=== PATIENT | female | born 1970 | race Caucasian/White ===

== ENCOUNTER 2021-08-27 09:12 | Emergency (ER) | payer BC ==
[~2021-08-27] VITALS: Ht 167.6 cm; Wt 80.5 kg
[2021-08-27 09:24] VITALS: TEMP 97.8
[2021-08-27 09:41] LABS: BASO % 0.8 % (0.0-2.0); EOS # 0.2 K/mm3 (0.0-0.7); EOS % 6.1 % (0-4.0); GRAN % 53.4 % (42.2-75.2); HEMATOCRIT 38.6 % (37.0-47.0); HEMOGLOBIN 13.2 g/dl (12.5-16.0); LYMPH # 1.2 K/mm3 (1.2-3.4); LYMPH % 31.8 % (20.0-51.0); MEAN CELL VOLUME 95 fl (80.0-100.0); MEAN CORPUSCULAR HEMOGLOBIN 32 pg (27.0-31.0); MEAN CORPUSCULAR HGB CONC 34 g/dl (33.0-37.0); MEAN PLATELET VOLUME 9.1 fl (7.4-10.4); MONO # 0.3 K/mm3 (0.1-0.6); MONO % 7.4 % (1.7-9.3); PLATELET COUNT 279 K/mm3 (130-400); RED BLOOD COUNT 4.08 M/mm3 (4.10-5.30); REDCELL DISTRIBUTION WIDTH-CV 12.1 % (11.5-14.5)
[2021-08-27 09:57] LABS: ALBUMIN 4.1 gm/dL (3.5-5.0); BILIRUBIN,TOTAL 0.5 mg/dL (0.2-1.2); CALCIUM 9.5 mg/dL (8.4-10.2); CREATININE, serum 0.93 mg/dL (0.57-1.11); POTASSIUM 3.9 mmol/L (3.5-4.5); TOTAL PROTEIN 7.1 gm/dL (6.2-8.1)
[2021-08-27 10:03] LABS: TROPONIN-I 0.011 ng/mL (0.00-0.033)
[2021-08-27 13:42] VITALS: BP 117/62; PULSE 83
== END 2021-08-27 13:42 | disposition home or self-care (01) ==
LOC: COL.ER 09:12
PROVIDERS: Emergency Medicine
DX: R07.89 Other chest pain (principal); F17.210 Nicotine dependence, cigarettes, uncomplicated; Z20.822 Contact with and (suspected) exposure to COVID-19

== ENCOUNTER 2021-12-08 14:27 | Inpatient (IN) | payer BC ==
[~2021-12-08] VITALS: Ht 167.6 cm; Wt 82.7 kg
[2021-12-08 15:54] LABS: BASO % 0.1 % (0.0-2.0); EOS % 0.1 % (0.0-4.0); GRAN # 4.9 K/mm3 (1.4-6.5); GRAN % 64.1 % (42.2-75.2); HEMOGLOBIN 11.5 g/dl (12.5-16.0); LYMPH # 1.8 K/mm3 (1.2-3.4); LYMPH % 23.4 % (20.0-51.0); MEAN CELL VOLUME 92 fl (80.0-100.0); MEAN CORPUSCULAR HEMOGLOBIN 33 pg (27-31); MEAN CORPUSCULAR HGB CONC 36 g/dl (33.0-37.0); MEAN PLATELET VOLUME 10.1 fl (7.4-10.4); MONO # 0.9 K/mm3 (0.1-0.6); PLATELET COUNT 242 K/mm3 (130-400); RED BLOOD COUNT 3.46 M/mm3 (4.10-5.30); REDCELL DISTRIBUTION WIDTH-CV 11.8 % (11.5-14.5)
[2021-12-08 15:56] LABS: BILIRUBIN,TOTAL 0.5 mg/dL (0.2-1.2); C-REACTIVE PROTEIN 0.17 mg/dL (0.00-0.50); CREATININE, serum 0.83 mg/dL (0.57-1.11); HEMATOCRIT 31.7 % (37.0-47.0); POTASSIUM 3.3 mmol/L (3.5-4.5); TOTAL PROTEIN 6.8 gm/dL (6.2-8.1)
[2021-12-08 18:04] LABS: COLLECTION METHOD CLEAN CATCH
[2021-12-08 18:19] LABS: MUCOUS Present (NOT PRESENT); PH 6 (5-8); SQUAMOUS EPITHELIAL 0-2 /hpf (0-10); URINE APPEARANCE Clear (CLEAR/HAZY); URINE BACTERIA None Seen /hpf (NONE SEEN); URINE BILIRUBIN Negative (NEGATIVE); URINE BLOOD 3+ (NEGATIVE); URINE COLOR Yellow (YELLOW); URINE GLUCOSE Negative (NEGATIVE); URINE KETONE 1+ (NEGATIVE); URINE LEUKOCYTE ESTERASE Negative (NEGATIVE); URINE NITRATE Negative (NEGATIVE); URINE PROTEIN(semi-quant) Negative (NEGATIVE); URINE UROBILINOGEN Negative (NEGATIVE)
[2021-12-08 18:25] LABS: TRICYCLIC ANTIDEPRESS URINE NEGATIVE
[2021-12-08] MEDS ORDERED: NEURONTIN300 MG/CAP PO (20:19)
[2021-12-08] MEDS ORDERED: ATIVAN 1MG T1 MG/TAB PO (20:20)
[2021-12-08] MEDS ORDERED: AMITRIPTYLINE H25 M1 PO (20:21)
[2021-12-08] MEDS ORDERED: CELEXA40 MG PO (20:22)
--- NOTE | 2021-12-08 20:41 | NUR ---
Pt. arrived to the floor. Pt. able to ambulate to the bed independently. It is Alert to self and daughter. Pt. able to answer who the president is but not the month or year. Pt. denies pain. Call light within reach.
--- NOTE | 2021-12-08 21:00 | NUR ---
Due to pt. having altered mental status, pt. is not currently a good historian and unable to complete med rec. Will have day shift nurse notify the pt.'s pharmacy.
[2021-12-08 21:12] VITALS: BP 124/62; PULSE 61; TEMP 98.4
[2021-12-08 22:55] LABS: MAGNESIUM 1.8 mg/dL (1.6-2.6)
--- NOTE | 2021-12-08 22:59 | NUR ---
Vancomycin Initial Dosing Pharmacy Note Ordering provider: Last Gonzalez MD Indication/duration: Possible meningitis x 5 days. Relevant comorbidities: N/A LABS: WBC = 7.7, SCr = 0.83 Recommendation: Will draw troughs and follow levels. Loading dose: 2 grams Maintenance dose: 1.5 grams every 12 hours Trough goal: 20-25 ug/mL
--- NOTE | 2021-12-09 02:45 | NUR ---
Pt. found up in room with bed alarm going off. When pt. asked where they were going. Pt got very angry. Pt. is not able to voice what they are angry about and sentences are incomplete and incoherent at this time. Pt. gets verbally aggressive with this nurse yelling put downs. Pt. requesting to see the SANFORD Rangel was notified and came to the room. Pt. then began to settle down a bit. One time dose of ativan given IV. This nurse, SANFORD Denise, and REE Perez remained at the pt.'s bedside for several minutes allowing the pt. just to talk. Pt. talkes about losing her last January. When asked if pt. feels like harming herself the pt. voices no. Pt. helped to bed and repositioned for comfort. Pt. denies further needs, bed alarm on.
[2021-12-09 03:06] VITALS: BP 123/70; PULSE 55; TEMP 97.8
[2021-12-09 07:22] VITALS: BP 149/81; PULSE 56; TEMP 98.4
--- NOTE | 2021-12-09 08:38 | NUR ---
Pt assessment complete. Pt is sitting up in bed upon entry, she is oriented to self and time, she [place] she [place] [employer], but knows she is in [place]. Pt is able to carry on a conversation, but occasionally has scattered misplaced thoughts. She is able to recall some events from past and from the ER visit. Pt denies any pain at this time. No SOB. Denies N/V. Call light within reach, bed alarm in place.
[2021-12-09 10:05] LABS: BASO % 0.2 % (0.0-2.0); GRAN # 3.7 K/mm3 (1.4-6.5); GRAN % 70.3 % (42.2-75.2); HEMOGLOBIN 10.6 g/dl (12.5-16.0); LYMPH # 1.1 K/mm3 (1.2-3.4); LYMPH % 20.2 % (20.0-51.0); MEAN CELL VOLUME 92 fl (80.0-100.0); MEAN CORPUSCULAR HEMOGLOBIN 32 pg (27-31); MEAN CORPUSCULAR HGB CONC 35 g/dl (33.0-37.0); MONO # 0.5 K/mm3 (0.1-0.6); MONO % 8.7 % (1.7-9.3); PLATELET COUNT 233 K/mm3 (130-400); RED BLOOD COUNT 3.31 M/mm3 (4.10-5.30); REDCELL DISTRIBUTION WIDTH-CV 11.9 % (11.5-14.5)
[2021-12-09 10:15] LABS: HEMATOCRIT 30.6 % (37.0-47.0)
--- NOTE | 2021-12-09 10:24 | NUR ---
MARLIN completed intake with daughter Jayleen [phone]. Daughter stated that patient lives in [place] alone and that she is the next of kin or point of contact due to being DPOA-HC if documents are located will be brought to the facility. Daughter stated that patient does not utilize DME, and is independent with ADLs, PCP is Dr. Gonzalez, and pharmacy is [facility]. Daughter stated that the patient's current dc plan is to return to her home [place]. Daughter stated she had no current questions or concerns. SW will continue to follow. DC plan: home/lives alone
[2021-12-09 11:53] VITALS: BP 152/64; PULSE 64; TEMP 98.1
[2021-12-09 15:10] VITALS: BP 140/72; PULSE 77; TEMP 98.1
--- NOTE | 2021-12-09 18:33 | NUR ---
Pt's mentation seemed to improve today. Denied any pain. POC discussed, patient agreeable to LP tomorrow with a dose of Ativan. Daughter in agreeance. No further needs at this time. Call light within reach.
[2021-12-09 19:41] VITALS: BP 124/82; PULSE 83; TEMP 98.7
--- NOTE | 2021-12-09 20:30 | NUR ---
Pt. sitting up in bed. Pt. is A&OX3, assessment complete. INT to rt. ac patent. Pt. denies pain. Pt.'s ability to carry on a conversation much improved today. Pt. denies further needs, call light within reach.
[2021-12-10] VITALS (7 sets, daily range): BP systolic 105–174; BP diastolic 65–90; PULSE 61–77; TEMP 96.1–99.6
[2021-12-10 06:41] LABS: BASO % 0.6 % (0.0-2.0); EOS # 0.1 K/mm3 (0.0-0.7); GRAN # 2.7 K/mm3 (1.4-6.5); GRAN % 50.7 % (42.2-75.2); HEMOGLOBIN 10.3 g/dl (12.5-16.0); LYMPH % 38.5 % (20.0-51.0); MEAN CELL VOLUME 92 fl (80.0-100.0); MEAN CORPUSCULAR HEMOGLOBIN 33 pg (27-31); MEAN CORPUSCULAR HGB CONC 36 g/dl (33.0-37.0); MEAN PLATELET VOLUME 10.3 fl (7.4-10.4); MONO # 0.5 K/mm3 (0.1-0.6); MONO % 8.6 % (1.7-9.3); PLATELET COUNT 224 K/mm3 (130-400); RED BLOOD COUNT 3.16 M/mm3 (4.10-5.30); REDCELL DISTRIBUTION WIDTH-CV 11.9 % (11.5-14.5)
[2021-12-10 06:55] LABS: CALCIUM 8.3 mg/dL (8.4-10.2); CREATININE, serum 0.81 mg/dL (0.57-1.11)
[2021-12-10 07:02] LABS: POTASSIUM 2.9 mmol/L (3.5-4.5)
--- NOTE | 2021-12-10 09:30 | NUR ---
Upon seeing pt for assessment, she was adament that she was going home and that her son-in-law would be here around 1130 to get her. She was very convincing as far as stating that she knew she would need to follow up with Dr Gonzalez and that we needed to send our records to them. She went on to state that the physician had been in and went over everything she needed. Clarified with Weston Bonds and that no, she is not cleared for discharge. Pt reports not having any pain. Will follow up with daughter regarding the fact that she is not ready for discharge
--- NOTE | 2021-12-10 11:08 | NUR ---
Pt down for lumbar puncture at this time. I did talk with her daughter earlier about the plan of care for today and to clarify that she is not going to be discharged. Daughter stated that Salud did text her sister that she was okay to go home for someone to come get her. Daughter understands the importance of her staying and completing ordered tests.
[2021-12-10 12:21] LABS: GLUCOSE,CSF 34 mg/dL (40-70); TOTAL PROTEIN,CSF 61 mg/dL (15-45)
[2021-12-10 12:44] LABS: CSF APPEARANCE HAZY; CSF COLOR RED
--- NOTE | 2021-12-10 12:45 | NUR ---
Notified pharmacy that the noon dose of abx is not on the unit.
[2021-12-10 12:48] LABS: CSF MONONUCLEAR 95 % (70-100); CSF POLYMORPHONUCLEAR 5 % (0-6); CSF RBC 12000 /mm3 (0-0)
[2021-12-10 12:54] LABS: CSF MONONUCLEAR 98 % (70-100); CSF POLYMORPHONUCLEAR 2 % (0-6); CSF RBC 1000 /mm3 (0-0)
[2021-12-10 12:56] LABS: CSF APPEARANCE CLEAR; CSF COLOR COLORLESS
--- NOTE | 2021-12-10 15:24 | NUR ---
Pt is starting to get upset that she is still here. She continues to state that she is ready to go home and sleep in her own bed tonight. Again informed her that she will be staying here tonight to get necessary medications. Pt stated that she cannot stay again tonight because if she does she will be fired from her job. Pt stated that her son-in-law and her daughter were here a little bit ago and plan to get her to take her home. I have not seen any family visiting today.
--- NOTE | 2021-12-10 21:00 | NUR ---
PT UP IN ROOM WITH STEADY GAIT. CONNECTED TO IV ANTIBIOTIC, AFTER CLEANING AND REDRESSING RT AC SITE. PT HAS DISORIENTED CONVERSATION OF CURRENT SITUATION THEN HAS GOOD RECALL OF MEDICAL HISTORY. REPORTS PAIN IN BACK, HAS REMOVED BANDAID FROM LOWER BACK LP PUNCTURE SITE. REPLACING POTASSIUM OF 3.4.
--- NOTE | 2021-12-10 22:00 | NUR ---
PT HAS BEEN MESSING WITH HER IV PUMP, HAS SETTINGS OFF. RE-PROGRAMMED AND PLACED PUMP CANCINO PAD ON LOCKOUT. PT LAUGHS INAPPROPRIATELY. STATES "I'M GOING TO BE IN AND OUT TOMORROW AND HOPING TO HAVE DINNER WITH MY DAUGHTER". RE-ORIENTED PT AT THIS TIME.
--- NOTE | 2021-12-10 23:03 | NUR ---
MEDICATED WITH ES TYLENOL 1000MG PO FOR BACK PAIN.
--- NOTE | 2021-12-11 02:12 | NUR ---
NOTIFIED ADAMA CHRISTINA OF PTS POSITIVE CSF W/HERPES SIMPLEX 2. PT PULLED IV SITE OUT, UNABLE TO RESTART X3 AT THIS TIME.
[2021-12-11 03:49] VITALS: BP 142/61; PULSE 70; TEMP 98.7
[2021-12-11 07:30] VITALS: BP 145/74; PULSE 85; TEMP 99.2
[2021-12-11 08:38] LABS: BASO % 0.4 % (0.0-2.0); EOS # 0.1 K/mm3 (0.0-0.7); EOS % 1.6 % (0.0-4.0); GRAN # 3.2 K/mm3 (1.4-6.5); GRAN % 62.8 % (42.2-75.2); HEMOGLOBIN 10.5 g/dl (12.5-16.0); LYMPH # 1.3 K/mm3 (1.2-3.4); LYMPH % 26.5 % (20.0-51.0); MEAN CELL VOLUME 92 fl (80.0-100.0); MEAN CORPUSCULAR HEMOGLOBIN 33 pg (27-31); MEAN CORPUSCULAR HGB CONC 36 g/dl (33.0-37.0); MEAN PLATELET VOLUME 9.8 fl (7.4-10.4); MONO # 0.4 K/mm3 (0.1-0.6); MONO % 8.1 % (1.7-9.3); PLATELET COUNT 247 K/mm3 (130-400); RED BLOOD COUNT 3.21 M/mm3 (4.10-5.30); REDCELL DISTRIBUTION WIDTH-CV 11.8 % (11.5-14.5)
[2021-12-11 08:39] LABS: HEMATOCRIT 29.4 % (37.0-47.0)
[2021-12-11 08:53] LABS: CALCIUM 8.4 mg/dL (8.4-10.2); CREATININE, serum 0.76 mg/dL (0.57-1.11); MAGNESIUM 1.8 mg/dL (1.6-2.6); POTASSIUM 3.8 mmol/L (3.5-4.5)
--- NOTE | 2021-12-11 11:01 | NUR ---
PT A&O X 2 THIS MORNING. DID NOT KNOW SHE WAS IN [place], REORIENTS EASILY. VSS. PT DENIES NEEDS THIS MORNING. INFECTIOUS DISEASE CONSULT CALLED THIS AM.
[2021-12-11 12:00] VITALS: BP 151/72; PULSE 73; TEMP 98.6
[2021-12-11 15:18] VITALS: BP 178/78; PULSE 55; TEMP 98.2
--- NOTE | 2021-12-11 16:15 | NUR ---
PT MORE ORIENTED THIS AFTERNOON. WAS ABLE TO RECALL CONVERSATION WITH DOCTOR. TOOK SHOWER TODAY. PLAN FOR PICC LINE PLACEMENT TOMORROW. WILL NEED ACYCLOVIR FOR 14 MORE DAYS PER ID. SOCIAL WORK FOLLOWING.
[2021-12-11 20:41] VITALS: BP 155/55; PULSE 86; TEMP 98.5
--- NOTE | 2021-12-11 22:41 | NUR ---
PT IN BED, IS ALERT AND ORIENTED X3. REPORTS PAIN IN HER HIPS AND ASKS IF WE ARE GIVING HER HOME MEDS TO HER. LISTED ALL HOME MEDS IN COMPUTER. REPORTS HEADACHE WELL. MEDICATED WITH ES TYLENOL 1000MG PO FOR HEADACHE. LOVENOX GIVEN IN ABD. CONNECTED TO IV ACYCLOVIR, IV SITE TO LEFT HAND FLUSHES WELL, FLUIDS INFUSING WITHOUT PROBLEM. PT REPORTS FEELING BETTER AND MORE CLEAR IN HER "BRAIN" TONIGHT.
--- NOTE | 2021-12-11 23:11 | NUR ---
ADAMA CHRISTINA REORDERS PT'S GABAPENTIN PER PT REQUEST, GIVEN AT THIS TIME.
[2021-12-12 00:05] VITALS: BP 122/67; PULSE 69; TEMP 98.1
[2021-12-12 04:34] VITALS: BP 143/74; PULSE 79; TEMP 98.2
[2021-12-12 06:30] LABS: BASO # 0.1 K/mm3 (0.0-0.2); EOS # 0.2 K/mm3 (0.0-0.7); EOS % 3.4 % (0.0-4.0); GRAN # 2.2 K/mm3 (1.4-6.5); GRAN % 44.3 % (42.2-75.2); HEMOGLOBIN 10.3 g/dl (12.5-16.0); LYMPH # 2.2 K/mm3 (1.2-3.4); LYMPH % 43.7 % (20.0-51.0); MEAN CELL VOLUME 95 fl (80.0-100.0); MEAN CORPUSCULAR HEMOGLOBIN 33 pg (27-31); MEAN CORPUSCULAR HGB CONC 35 g/dl (33.0-37.0); MEAN PLATELET VOLUME 10.1 fl (7.4-10.4); MONO # 0.4 K/mm3 (0.1-0.6); PLATELET COUNT 244 K/mm3 (130-400); RED BLOOD COUNT 3.11 M/mm3 (4.10-5.30); REDCELL DISTRIBUTION WIDTH-CV 12.1 % (11.5-14.5)
[2021-12-12 06:50] LABS: HEMATOCRIT 29.4 % (37.0-47.0)
[2021-12-12 06:59] LABS: CALCIUM 8.4 mg/dL (8.4-10.2); CREATININE, serum 0.76 mg/dL (0.57-1.11); POTASSIUM 3.4 mmol/L (3.5-4.5)
[2021-12-12 07:49] VITALS: BP 142/80; PULSE 81; TEMP 98.6
--- NOTE | 2021-12-12 09:08 | NUR ---
PT RESTING IN BED. C/O HAYS TYLENOL GIVEN. IV ACYLOVIR GIVEN ORDERED. PT DENIES NEEDS AT THIS TIME. VSS ASSESSMENTS COMPLETE. PT IS A\OX3.
[2021-12-12] MEDS ORDERED: ZOVIRAX INJ V1000 MG IV ×2 (11:46→13:02)
[2021-12-12] MEDS ORDERED: TYLENOL 500MG500 MG PO (11:47)
[2021-12-12 12:27] VITALS: BP 138/86; PULSE 70; TEMP 97.8
--- NOTE | 2021-12-12 15:03 | NUR ---
[employer] and MARLIN student attended clinical rounds with the team and patient is ready for discharge today. Patient will need 12 days of IV antibiotics, three times a day post discharge. MARLIN and SW student met with patient who would like to do outpatient IV antibiotics at the [facility]. Patient states she plans to stay with her daughter, Paige in [place] and that Paige lives right down the road from [facility]. Patient feels it will be good for her to get out of the house. MARLIN contacted TREASURE Pope at [facility] and faxed referral/orders. Patient will have 12 days of IV antibiotics and appointments with be at 0600, 1400, and 2200. MARLIN confirmed these appointment times work with patient. MARLIN collaborated with [facility] and Hospitalist team to arrange for patient to receive third does of antibiotic prior to discharge today, meaning patient will start tomorrow at 0600. Patient is agreeable to this plan. Discharge Plan: Home with daughter, outpatient IV antibiotics at [facility]
[2021-12-12 15:38] VITALS: BP 146/70; PULSE 72; TEMP 99.2
--- NOTE | 2021-12-12 19:45 | NUR ---
Pt. sitting up in bed. Pt. is A&OX3, assessment complete. PICC to rt. upper arm patent. Pt. denies pain. Pt. reviewed home care with PICC line. Will give pt. educational paperwork on PICC lines in discharge paper work. Last dose of Acyclavir started. Pt. denies further needs, call light within reach.
[2021-12-12 20:09] VITALS: BP 133/81; PULSE 74; TEMP 98.1
--- NOTE | 2021-12-12 21:10 | NUR ---
Pt.'s acyclovir complete. Pt. reviewed discharge paperwork with pt. and daughter. Pt. voices understanding. Reviewed medications, Pt. voices understanding. Pt. given pt. health summary, education, and appointment imformation. Pt. voices understanding. Pt. discharging with PICC line. Reviewed home care education. Pt. voices understanding. Pt. denies further questions. Pt. escorted out by wheelchair with REE Kang.
== END 2021-12-12 21:20 | disposition home or self-care (01) | DRG 75 ==
LOC: COL.ER 14:27 → SURG 18:12
PROVIDERS: Family Medicine; Physician Assistant; Student in an Organized Health Care Education/Training Program; ADMIT Student in an Organized Health Care Education/Training Program
PROC: 009U3ZX Drainage of Spinal Canal, Percutaneous Approach, Diagnostic (ICD-10-PCS; principal; 2021-12-10)
PROC: 02HV33Z Insertion of Infusion Device into Superior Vena Cava, Percutaneous Approach (ICD-10-PCS; 2021-12-12)
DX: B00.3 Herpesviral meningitis (principal); G93.40 Encephalopathy, unspecified; F41.9 Anxiety disorder, unspecified; K21.9 Gastro-esophageal reflux disease without esophagitis; J10.1 Influenza due to other identified influenza virus with other respiratory manifestations; F32.A Depression, unspecified; G43.909 Migraine, unspecified, not intractable, without status migrainosus; E87.6 Hypokalemia; Z20.822 Contact with and (suspected) exposure to COVID-19; F17.210 Nicotine dependence, cigarettes, uncomplicated; Z79.891 Long term (current) use of opiate analgesic; Z23 Encounter for immunization
CPT/HCPCS: OP; 99233-AI; 99239; C1751; G0378; J0133; J0696; J1100; J1650; J2060; J3370; J7030; J7040; J7050

== ENCOUNTER → 2021-12-24 | Outpatient (CLI) | payer BC ==
[~2021-12-24] MED LIST: AMITRIPTYLINE H25 M1 PO; ATIVAN 1MG T1 MG/TAB PO; CARAFATE 1GM1 G PO; CELEXA40 MG PO; FLEXERIL 1010 MG/TAB PO; NEURONTIN300 MG/CAP PO; PRIL40 PO; TYLENOL 500MG500 MG PO; ZOVIRAX INJ V1000 MG IV; ZOVIRAX400 MG PO
[2021-12-24 14:18] LABS: HEMOGLOBIN 12.1 g/dl (12.5-16.0); MEAN CELL VOLUME 99 fl (80.0-100.0); MEAN CORPUSCULAR HEMOGLOBIN 33 pg (27-31); MEAN CORPUSCULAR HGB CONC 33 g/dl (33.0-37.0); MEAN PLATELET VOLUME 9.1 fl (7.4-10.4); PLATELET COUNT 272 K/mm3 (130-400); RED BLOOD COUNT 3.65 M/mm3 (4.10-5.30); REDCELL DISTRIBUTION WIDTH-CV 13.9 % (11.5-14.5)
[2021-12-24 14:19] LABS: HEMATOCRIT 36.2 % (37.0-47.0)
[2021-12-24 14:32] LABS: ALBUMIN 3.9 gm/dL (3.5-5.0); BILIRUBIN,TOTAL 0.4 mg/dL (0.2-1.2); CREATININE, serum 0.89 mg/dL (0.57-1.11); POTASSIUM 3.9 mmol/L (3.5-4.5); TOTAL PROTEIN 6.7 gm/dL (6.2-8.1)
== END ==
LOC: COL.LAB 13:49
PROVIDERS: Physician Assistant
DX: B00.3 Herpesviral meningitis (principal)

== ENCOUNTER 2021-12-27 13:58 | Outpatient (CLI) | payer BC ==
[~2021-12-27 13:58] MED LIST changes: -CARAFATE 1GM1 G PO; -FLEXERIL 1010 MG/TAB PO; -PRIL40 PO; -ZOVIRAX400 MG PO
[2021-12-27 14:11] VITALS: BP 136/90; PULSE 89; TEMP 97.7
[2021-12-27] MEDS ORDERED: ZOVIRAX400 MG PO (14:50)
[2021-12-27] MEDS ORDERED: FLEXERIL 1010 MG/TAB PO (14:51)
[2021-12-27] MEDS ORDERED: PRIL40 PO (14:51)
[2021-12-27] MEDS ORDERED: CARAFATE 1GM1 G PO (14:52)
--- NOTE | 2021-12-27 15:00 | NUR ---
Dressing to right upper arm remains clean, dry and intact. Pt ambulates out of dept with steady gait after review of PICC DC home care instructions print off.
== END 2021-12-27 15:30 | disposition home or self-care (01) ==
LOC: EUO 13:58
DX: Z45.2 Encounter for adjustment and management of vascular access device (principal)